=== PATIENT | female | born 1975 | race American Indian/Alaskan Native ===

== ENCOUNTER 2017-04-22 11:34 | Outpatient (CLI) | payer OTHER ==
--- NOTE | 2017-04-22 14:58 | Ultrasound Report ---
THYROID ULTRASOUND INDICATION: Hypothyroidism, unspecified. COMPARISON: None similar at this institution. FINDINGS: Grayscale and color-flow thyroid sonography somewhat difficult due to patient's body habitus, though suggests a small thyroid gland with grossly normal contours, echotexture and vascularity without focal lesions. Right thyroid lobe estimated at 2.5 x 0.8 x 0.7 cm. Left thyroid lobe is 1.9 x 0.9 x 0.7 cm. Isthmus measures 0.2 cm AP. CONCLUSION: Small thyroid gland noted, as described. Thank you for the opportunity to participate in this patient's care.
== END 2017-04-22 11:35 | disposition home or self-care (01) ==
LOC: US 11:34
PROVIDERS: ATTEND Internal Medicine Endocrinology, Diabetes & Metabolism
DX: E05.00 Thyrotoxicosis with diffuse goiter without thyrotoxic crisis or storm (principal); E03.9 Hypothyroidism, unspecified
CPT/HCPCS: 76536